=== PATIENT | male | born 1980 | race Asian ===

== ENCOUNTER 2020-02-17 16:16 | Emergency (ER) | payer OTHER ==
[~2020-02-17] VITALS: Ht 160 cm; Wt 61.0 kg
[2020-02-17] MEDS ORDERED: SINGULAIR10 MG PO (16:25)
[2020-02-17 16:43] VITALS: BP 145/83
== END 2020-02-17 16:51 | DRG 605 ==
LOC: ED 16:16
PROC: 0HQ0XZZ Repair Scalp Skin, External Approach (ICD-10-PCS; principal; 2020-02-17)
DX: S01.01XA Laceration without foreign body of scalp, initial encounter (principal); X99.8XXA Assault by other sharp object, initial encounter; Y92.149 Unspecified place in prison as the place of occurrence of the external cause